=== PATIENT | male | born 1985 | race Asian ===

== ENCOUNTER 2024-08-05 09:16 | Emergency (ER) | payer SELFPAY ==
--- NOTE | 2024-08-05 09:28 | EKG_ITS ---
[facility] (Formerly [facility]) Test Date: 2024-08-05 Pat Name: GIO HARTMAN Department: Room: - Gender: Male Bank Examiner: : 1985 Requested By: Rishabh Bonilla Order Number: [id number] Reading MD: Rishabh Bonilla Measurements Intervals [place] Rate: 73 P: 43 HI: 197 QRS: 44 QRSD: 92 T: -12 QT: 349 QTc: 387 Interpretive Statements SINUS RHYTHM NONSPECIFIC ST & T-WAVE ABNORMALITY No previous ECG available for comparison /[id number]/S0/[id number].pdf
--- NOTE | 2024-08-05 09:28 | XR_ITS ---
Examination: AP chest single view Technique one AP portable semiupright chest single view Exam date and time: August 05, 2024 1108 hrs. Indications: Chest pain onset today. Findings: Mild enlargement cardiac contour Mild vascular congestion. No lobar or pulmonary edema The osseous structures are intact Impression: Mild enlargement cardiac contour Mild vascular congestion
[2024-08-05 09:46] VITALS: BP 173/103; PULSE 75; RESP 18; TEMP 37; O2SAT 97
[2024-08-05 10:12] VITALS: PULSE 87; RESP 18; O2SAT 97; BMI 33.7
[2024-08-05 10:51] LABS: Lactate (Lactic Acid) 1.8 mMol/L (0.4-2.0)
[2024-08-05 10:54] LABS: Basophils % (Auto) 0 % (0-2.5); Eosinophils # (Auto) 0.1 Thou/mm3 (0.0-0.5); Eosinophils % (Auto) 1 % (0-10); Hematocrit 50.7 % (41.0-53.0); Hemoglobin 17.4 g/dL (13.5-16.0); Immature Granulocytes % (Auto) 0 % (0-0); Immature Granulocytes Auto 0.03 Thou/mm3 (0.00-0.00); Lymphocytes # (Auto) 1.1 Thou/mm3 (1.0-4.8); Lymphocytes % (Auto) 15 % (10-50); Mean Corpuscular HGB Conc 34.3 g/dl (31.0-37.0); Mean Corpuscular Hemoglobin 27.4 pg (25.0-35.0); Mean Corpuscular Volume 80 fL (80-100); Monocytes # (Auto) 0.6 Thou/mm3 (0.0-0.8); Monocytes % (Auto) 8 % (0-12); Neutrophils # (Auto) 5.5 Thou/mm3 (1.8-7.7); Neutrophils % (Auto) 75 % (37-80); Nucleated Red Blood Cell % 0 /100 WBC (0); Platelet Count 333 Thou/mm3 (140-440); Red Blood Count 6.34 Miln/mm3 (4.50-5.90); White Blood Count 7.3 Thou/mm3 (3.8-10.6)
[2024-08-05 11:06] VITALS: BP 121/84; PULSE 76; RESP 18; TEMP 37.1; O2SAT 98
[2024-08-05 11:09] LABS: B-Type Natriuretic Peptide < 20 pg/mL (0-100)
[2024-08-05 11:11] LABS: Alanine Aminotransferase 93 U/L (10-49); Albumin, Serum 4.6 gm/dL (3.5-5.0); Albumin/Globulin Ratio 1.7 (1.2-2.2); Alkaline Phosphatase 90 U/L (46-116); Anion Gap 7 (7-16); Aspartate Amino Transferase 25 U/L (0-34); BUN/Creatinine Ratio 10 Ratio (12-20); Bilirubin,Total 0.6 mg/dL (0.3-1.2); Blood Urea Nitrogen 9 mg/dL (9-23); Calcium 9.2 mg/dL (8.3-10.6); Calcium (Corrected) 9.2 mg/dL (8.5-10.1); Carbon Dioxide 26.8 mMol/L (20.0-31.0); Chloride 101 mMol/L (98-107); Creatinine (Component) 0.9 mg/dL (0.6-1.3); Estimated Creatinine Clearance 121.1 mL/min (>60); Globulin 2.7 gm/dL (2.3-3.5); Glucose 153 mg/dL (74-106); Lipase 60 U/L (12-53); Osmolality,Calculated 271 (275-295); Potassium 3.8 mMol/L (3.4-5.1); Sodium 135 mMol/L (136-145); Total Protein 7.3 gm/dL (5.7-8.2); Troponin I < 0.020 ng/mL (0.0-0.045); eGFR > 60 See Note
--- NOTE | 2024-08-05 11:47 | PD.EDCHEST ---
ED Chest Pain RME/HPI General Chief Complaint: Chest Pain Stated Complaint: CHEST PAIN Time Seen by Provider: 08/05/24 09:28 Arrival date/time: 08/05/24 09:16 RME / HPI RME / HPI narrative: DR. WINSLOW MAIN ED EVALUATION: 39 year old male presents to the Emergency Department [facility] with complaint of chest pain. He has been having problems with his blood pressure and having chest pain on/off for a year. Today, he was having chest pain again and he was at [facility] where they gave him ASA and nitro and then called an ambulance. EMS gave the patient another ASA and nitro. Review of Systems Review of Systems Systems Reviewed: All systems reviewed, normal except as documented Narrative Review of Systems: Constitutional: DENIES: fevers; Eyes: DENIES: loss of vision; Head/Ear/Nose: DENIES: loss of hearing. Throat: DENIES: dysphagia. Cardiovascular: POSITIVES: chest pain DENIES: dyspnea, or syncope. Respiratory: DENIES: shortness of breath; Gastrointestinal: DENIES: rectal bleeding or melena. Genitourinary: DENIES: dysuria (painful or difficult urination); Musculoskeletal: DENIES: arthralgia (pain in a joint); Skin: DENIES: rash; Neurological: DENIES: loss of function or movement; Psychiatric: DENIES: recent major life stressor, emotional problem, illicit drug use or abuse; Endocrinology: DENIES: weight change,; Hematologic/Lymphatic: DENIES: abnormal bruising. Allergic/Immunologic: DENIES: urticaria (hives). Past Medical History Social History SMOKING STATUS: Never smoker SUBSTANCE USE: does not use ALCOHOL: Never Course Quality Measures none Orders Category Date Time Status EKG (ED ONLY) *Do not use* NOW Care 08/05/24 09:28 Completed EKG (ED Only) Stat Exams 08/05/24 09:28 Draft XR chest 1V portable Stat Exams 08/05/24 09:28 Taken B-Type Natriuretic Peptide Stat Lab 08/05/24 10:42 Completed CBC Stat Lab 08/05/24 10:42 Completed Comprehensive Metabolic Panel Stat Lab 08/05/24 10:42 Completed D-Dimer Stat Lab 08/05/24 10:42 Received Drug Screen,Urine Stat Lab 08/05/24 09:28 Ordered Lactate (Lactic Acid) Stat Lab 08/05/24 10:42 Completed Lipase Stat Lab 08/05/24 10:42 Completed Magnesium Stat Lab 08/05/24 10:42 Completed Troponin I Stat Lab 08/05/24 10:42 Completed Urinalysis Stat Lab 08/05/24 09:28 Ordered Urinalysis, C/S if Indicated Stat Lab 08/05/24 09:28 Ordered Vital Signs Vital signs: Vital Signs Temperature 98.6 F 08/05/24 09:46 Pulse Rate 75 08/05/24 09:46 Respiratory Rate 18 08/05/24 09:46 Blood Pressure 173/103 H 08/05/24 09:46 Pulse Oximetry (%) 97 08/05/24 09:46 Oxygen Delivery Method Room Air 08/05/24 09:46 Chest Pain MDM Narrative MDM Narrative:: Claudine King am scribing for and in the presence of Dr. Winslow. Evaluation data The following diagnostics were reviewed and interpreted by me:: EKG tracing(s) (EKG#1: Dated 08/05/2024 at 0840 hours done at [facility]. Interpreted by me: sinus rhythm, rate 65, no STEMI. EKG#2: Dated 08/05/2024 at 1136 hours. Interpreted by me: sinus rhythm, rate 73, no STEMI) Lab and/or radiology exams considered but not ordered:: none Discharge Plan Prescriptions/Referrals Referrals: No Primary/Family,Physician [Primary Care Provider] - In 1 week Patient/Caregiver Discharge Instructions Print Language: Romansh
[2024-08-05 12:01] LABS: D-Dimer < 250 ng/mL (<600)
--- NOTE | 2024-08-05 12:17 | EDNOTE_ITS ---
ED Chest Pain RME/HPI General Chief Complaint: Chest Pain Stated Complaint: CHEST PAIN Time Seen by Provider: 08/05/24 09:28 Arrival date/time: 08/05/24 09:16 RME / HPI RME / HPI narrative: 39 year old male presents to the Emergency Department [facility] with complaint of chest pain. He has been having problems with his blood pressure and having chest pain on/off for a year. Today, he was having chest pain again and he was at [facility] where they gave him ASA and nitro and then called an ambulance. EMS gave the patient another ASA and nitro. Patient denies any cough. Denies any fever. Denies any other complaints. Related Data Previous Rx's ?Medication ?Instructions ?Recorded pantoprazole 40 mg tablet,delayed 40 mg PO QDAY #20 tabs 08/05/24 release (Protonix) Review of Systems Review of Systems Narrative Review of Systems: Review of system reviewed and within normal limits except mentioned in HPI ED Exam Narrative Physical exam: VITAL SIGNS: Reviewed. GENERAL APPEARANCE: Alert and interactive, follows commands, no acute distress, HEAD AND FACE: Non-traumatic. ENT: PERRL, pink conjunctivitis, eyelid no trauma, Mucous membrane moist. NECK: Supple, nontender, no nuchal rigidity. CHEST: No tenderness, no crepitus, no paradoxical movement, no retractions. LUNGS: Clear, well ventilated, symmetric, no rales, no wheezing, no ronchi, no stridor, good breath sounds bilaterally. HEART: Regular rate, regular rhythm, no murmur, no gallops. ABDOMEN: Soft, positive bowel sounds, nondistended, no guarding, nontender, no rebound, no masses, RECTAL: Deferred. GENITAL: Deferred. NEUROLOGICAL: Gross motor function intact sensory function intact, Appropriate for age. MUSCULOSKELETAL: low back nontender, full range of motion. EXTREMITIES: Nontender, full range of motion. SKIN: Color pink, dry, no rash, no lacerations, no abrasions, no contusions. LYMPHATICS: Deferred. Course Quality Measures none Orders Category Date Time Status EKG (ED ONLY) *Do not use* NOW Care 08/05/24 09:28 Completed EKG (ED Only) Stat Exams 08/05/24 09:28 Draft XR chest 1V portable Stat Exams 08/05/24 09:28 Taken B-Type Natriuretic Peptide Stat Lab 08/05/24 10:42 Completed CBC Stat Lab 08/05/24 10:42 Completed Comprehensive Metabolic Panel Stat Lab 08/05/24 10:42 Completed D-Dimer Stat Lab 08/05/24 10:42 Completed Drug Screen,Urine Stat Lab 08/05/24 09:28 Ordered Lactate (Lactic Acid) Stat Lab 08/05/24 10:42 Completed Lipase Stat Lab 08/05/24 10:42 Completed Magnesium Stat Lab 08/05/24 10:42 Completed Troponin I Stat Lab 08/05/24 10:42 Completed Troponin I Stat Lab 08/05/24 12:33 Completed Urinalysis Stat Lab 08/05/24 09:28 Ordered Urinalysis, C/S if Indicated Stat Lab 08/05/24 09:28 Ordered Vital Signs Vital signs: Vital Signs Temperature 98.6 F 08/05/24 09:46 Pulse Rate 75 08/05/24 09:46 Respiratory Rate 18 08/05/24 09:46 Blood Pressure 173/103 H 08/05/24 09:46 Pulse Oximetry (%) 97 08/05/24 09:46 Oxygen Delivery Method Room Air 08/05/24 09:46 Chest Pain MDM Narrative MDM Narrative:: 39 year old male presents to the Emergency Department [facility] with complaint of chest pain. He has been having problems with his blood pressure and having chest pain on/off for a year. Today, he was having chest pain again and he was at [facility] where they gave him ASA and nitro and then called an ambulance. EMS gave the patient another ASA and nitro. Patient denies any cough. Denies any fever. Denies any other complaints. Patient's cardiac workup all came back normal. Troponin is normal. EKG showed normal sinus rhythm, ventricular rate of 73 bpm, no ST segment elevation or depression noted. I personally reviewed and interpreted the x-ray of this patient. There is no acute abnormalities found, no infiltrates no pneumothorax no hemothorax normal chest x-ray. Review of other structures was without significant abnormal findings also. I additionally reviewed the radiologist report and agree with the interpretation. None Patient data External records reviewed:: None Clinical information provided by:: patient Social determinants that could affect healthcare access:: none Patient has the following chronic illnesses:: None How is presenting disease/condition affected by chronic disease/condition?: no chronic disease Evaluation data The following diagnostics were reviewed and interpreted by me:: lab results and radiology exam(s) Lab and/or radiology exams considered but not ordered:: None Interpretation Summary: See results in MDM Medications / Prescriptions Medications or Prescriptions considered but not ordered:: None Medication administrations:: None Consultations Consultation(s) initiated? (list below): No Diagnosis Chest Pain Differential Diagnosis: pneumothorax, costochondritis and chest pain Most likely diagnosis given after review of the tests above:: Chest pain Admission Indicated Admission indicated?: not indicated Explain why admission is indicated or not indicated:: Stable Admission Request Was there a request for admission?: No Disposition Plan Disposition Plan: Discharge Discharge Attestation Discharge Attestation: The patient was given an opportunity to ask questions and understood the discharge instructions. Discharge instructions specifically effects, indications for sooner follow up or return to the emergency department, and the expected course of current diagnosis. Patient condition: Stable Discharge Plan Plan Patient Disposition: HOME (Self Care) Disposition Comment: Stable Prescriptions/Referrals Prescriptions/Med Rec: New pantoprazole [Protonix] 40 mg tablet,delayed release (DR/EC) 40 mg PO QDAY Qty: 20 0RF Referrals: No Primary/Family,Physician [Primary Care Provider] - In 1 week Problem List Clinical Impression: Chest pain Patient/Caregiver Discharge Instructions Discharge Activity: activity as tolerated Education Materials: ED Chest Pain, Noncardiac Additional Instructions: Thank you for the opportunity for serving you today. You are stable for discharged . You are advised to: Follow-up with your PCP in 1 to 2 days Return to ED for worsening of symptoms Increase oral fluids Take medication as prescribed Print Language: French Stand Alone Forms: Mary Award Info., Work/School Release, Patient Portal Info Letter MURPHY/JEANETH Supervising Physician INEZ Supervising Physician: MD Chad
[2024-08-05 13:19] LABS: Troponin I < 0.020 ng/mL (0.0-0.045)
[2024-08-05 14:40] LABS: Collection Type, Urine Clean Catch
[2024-08-05 14:47] LABS: Bilirubin,Urine Negative (Negative); Blood,Urine Negative (Negative); Clarity,Urine Clear (Clear/Hazy); Color,Urine Yellow (Lt Yel-Yel); Glucose, Urine Negative (Negative); Ketones,Urine Negative (Negative); Leukocyte Esterase,Urine Negative (Negative); Nitrite,Urine Negative (Negative); Protein,Urine 1+ (Neg - Trace); Specific Gravity,Urine 1.025 (1.001-1.035); Urobilinogen,Urine Negative mg/dL (0.0-1.0)
[2024-08-05 14:48] LABS: Culture Indicated,Urine Not Indicated; RBC,Urine 3 /hpf (0-3); Squamous Epithelial Cell,Urine < 1 /hpf (0-5); WBC,Urine 2 /hpf (0-5)
[2024-08-05 14:54] LABS: Amphetamine/Methamp Scrn,U Negative (Negative); Barbiturate Screen,Urine Negative (Negative); Benzodiazepines Screen,Urine Negative (Negative); Benzoylecgonine Screen, Ur Negative (Negative); Fentanyl Screen,Urine Negative (Negative); Opiate Screen,Urine Negative (Negative); THC Screen,Urine Negative (Negative)
[2024-08-05 15:13] VITALS: BP 152/109; PULSE 80; RESP 15; TEMP 36.8; O2SAT 95
[2024-08-05 15:27] VITALS: BP 144/88; PULSE 73; RESP 16; O2SAT 95
== END 2024-08-05 15:28 | disposition home or self-care (01) ==
PROVIDERS: Nurse Practitioner Family; Emergency Provider Emergency Medicine
DX: R07.9 Chest pain, unspecified (principal); R94.31 Abnormal electrocardiogram [ECG] [EKG]
CPT/HCPCS: 36415; 71045; 80053; 80307; 81001; 83605; 83690; 83735; 83880; 84484; 85025; 85379; 93005; 99283

== ENCOUNTER → 2025-06-13 | Outpatient (CLI) | payer MEDICAID, SELFPAY ==
--- NOTE | 2025-06-13 12:31 | XR_ITS ---
EXAMINATION: Cervical spine 3 views TECHNIQUE: AP lateral coned AP odontoid 3 views Date and time: June 13, 2025, 1315 hours INDICATIONS: Onset neck pain this week. FINDINGS: Straightening normal cervical lordosis No cervical fracture No cervical disc narrowing The odontoid is intact IMPRESSION: No fracture or arthritic change
--- NOTE | 2025-06-13 12:31 | XR_ITS ---
Examination: Shoulder, right, 3 views Technique: Shoulder AP internal rotation, AP external rotation, Y view shoulder, 3 views Exam date and time : June 13, 2025, 1115 hours INDICATIONS: Onset shoulder pain this week FINDINGS: No shoulder fracture or dislocation Mild narrowing glenohumeral joint No AC joint separation. No calcific tendinitis IMPRESSION: Mild narrowing glenohumeral joint
== END | disposition home or self-care (01) ==
LOC: CDIM 12:20
DX: M54.2 Cervicalgia (principal); M25.811 Other specified joint disorders, right shoulder
CPT/HCPCS: 72040; 73030

== ENCOUNTER → 2025-07-02 | Outpatient (CLI) | payer MEDICAID, SELFPAY ==
--- NOTE | 2025-07-02 16:28 | XR_ITS ---
EXAMINATION: PA chest single view TECHNIQUE: Upright PA chest single view Date and time: July 02, 2025, 1646 hours, comparison August 05, 2024 INDICATIONS: Coughing 1 week, clinical diagnosis bronchitis FINDINGS: Normal heart size Lungs are clear. Intact osseous structures IMPRESSION: No active disease
== END | disposition home or self-care (01) ==
DX: R05.9 Cough, unspecified (principal)
CPT/HCPCS: 71046